=== PATIENT | female | born 1985 | race Caucasian/White ===

== ENCOUNTER 2018-09-01 06:48 | Day surgery (SDC) | payer OTHER ==
[2018-09-01] VITALS (8 sets, daily range): BP systolic 112–136; BP diastolic 68–80; PULSE 84–100; RESP 17–27; Ht 167.6 cm; Wt 74.0 kg
[~2018-09-01] VITALS: Ht 167.6 cm; Wt 74.0 kg
[2018-09-01] MEDS ORDERED: ativan (07:54)
[2018-09-01] MEDS ORDERED: cryselle (07:54)
[2018-09-01] MEDS ORDERED: DASATINIB (07:54)
[2018-09-01] MEDS ORDERED: NORCO PRN (07:54)
[2018-09-01] MEDS ORDERED: ferrous sulfate (07:54)
[2018-09-01] MEDS ORDERED: fluoxetine (07:54)
--- NOTE | 2018-09-01 08:16 | HPN ---
Date/Time of Note Date/Time of Note DATE: 09/01/18 TIME: 08:16 Interval H&P Admission Note Pt. seen H&P reviewed: No system changes VALENTIN RODRIGUEZ September 01, 2018 08:16
--- NOTE | 2018-09-01 08:33 | PREAC ---
Date/Time of Note Date/Time of Note DATE: 09/01/18 TIME: 08:32 Anesthesia Eval and Record Evaluation Time Pre-Procedure Interview DATE: 09/01/18 TIME: 08:32 Age 32 Sex female NPO: 8 hrs Preoperative diagnosis dyspepsia, rectal pain Planned procedure EGD colonoscopy Past Medical History Past Medical History: Includes Heme: Other (leukemia) Surgery & Anesthesia Issues No known issue Meds Anticoagulation: No Beta Viki within 24 hr: No Reason Beta Viki not given: Pt. not on B-Viki Reported Medications [ferrous sulfate] No Conflict Check 09/01/18 [ativan] No Conflict Check 09/01/18 [norco prn] No Conflict Check 09/01/18 [fluoxetine] No Conflict Check 09/01/18 [dasatinib] No Conflict Check 09/01/18 [cryselle] No Conflict Check 09/01/18 Meds reviewed: Yes Allergies Coded Allergies: No Known Allergy (Unverified , 09/01/18) Allergies Reviewed: Yes Labs/Studies Labs Reviewed: Reviewed by anesthesiologist test: Negative Studies: ECG (n/a), CXR (n/a) Pre-procedure Exam Last vitals Vital Signs Date Temp Pulse Resp B/P (MAP) Pulse Ox O2 O2 Flow FiO2 Time Delivery Rate 09/01/18 98.0 100 18 136/80 99 Room Air 08:16 (98) Airway: Adequate mouth opening Mallampati: Mallampati I Teeth: Normal Lung: Normal Heart: Normal ASA Physical Status ASA physical status: 2 Emergency: None Planned Anesthetic General/MAC: MAC Pre-operative Attestations Prior to commencing anesthesia and surgery, the patient was re-evaluated, there was verification of: *The patient's identity *The results of appropriate recent lab work and preoperative vital signs *The above evaluation not changing prior to induction *Anesthetic plan, risk benefits, alternative and complications discussed with patient/family; questions answered; patient/family understands, accepts and wishes to proceed. EDGAR GENAO MD September 01, 2018 08:33
[2018-09-01] MEDS ORDERED: PROPOFOL 20 ML ONE ×2 (08:34→09:22)
[2018-09-01] MEDS ORDERED: FENTAnyl 50 MCG/ML VIAL ONE (08:34)
[2018-09-01] MEDS ORDERED: ONDANSETRON 4 MG INJ IV PRN (09:00)
--- NOTE | 2018-09-01 14:41 | PAC ---
Date/Time of Note Date/Time of Note DATE: 09/01/18 TIME: 14:40 Post-Anesthesia Notes Post-Anesthesia Note Last documented vital signs Vital Signs Date Temp Pulse Resp B/P (MAP) Pulse Ox O2 O2 Flow FiO2 Time Delivery Rate 09/01/18 97.8 84 26 119/76 99 Room Air 09:32 (90) 09/01/18 97.8 6.0 09:10 Activity: WNL Respiratory function: WNL Cardiovascular function: WNL Mental status: Baseline Pain reasonably controlled: Yes Hydration appropriate: Yes Nausea/Vomiting absent: No EDGAR GENAO MD September 01, 2018 14:41
== END 2018-09-01 10:17 | disposition home or self-care (01) ==
LOC: GIL 06:48 → EDBD 09:30 → GIL 10:17
PROVIDERS: ATTEND Internal Medicine Gastroenterology
DX: R19.7 Diarrhea, unspecified (principal); K51.90 Ulcerative colitis, unspecified, without complications
CPT/HCPCS: 43239; 45380; 84703; 88305; 88312; J3010; Z7610